=== PATIENT | male | born 1960 | race Caucasian/White ===

== ENCOUNTER 2025-03-03 13:26 | Inpatient (IN) | payer OTHER ==
[~2025-03-03] VITALS: Ht 177.8 cm; Wt 75.0 kg
[2025-03-03 15:03] LABS: BASOPHILS % 0.6 % (0.0-2.0); EOSINOPHILS % 1.8 % (0.0-5.0); HEMATOCRIT. 43.3 % (42.0-52.0); HEMOGLOBIN. 14.8 g/dL (14.0-18.0); LYMPHOCYTES % 11.8 % (20.0-50.0); MEAN PLATELET VOLUME 8.4 fl (7.4-10.4); MONOCYTES % 10.3 % (2.0-8.0); NEUTROPHILS % 75.5 % (40.0-76.0); PLATELET 397 x1000/uL (130-400); RED BLOOD CELL COUNT 4.85 mill/uL (4.7-6.1); RED CELL DISTRIBUTION WIDTH 14.6 % (11.6-14.6)
[2025-03-03 15:17] LABS: INR 1.0
[2025-03-03 15:18] LABS: CREATININE 0.8 mg/dL (0.6-1.3); ETHANOL BLOOD < 10 mg/dL (<10); UREA NITROGEN BLOOD 7 mg/dL (9-23)
[2025-03-03 15:42] LABS: CLARITY URINE CLEAR (CLEAR); COLOR URINE YELLOW (YELLOW); GLUCOSE URINE NEGATIVE (NEGATIVE); KETONES URINE TRACE (NEGATIVE); LEUKOCYTE ESTERASE URINE NEGATIVE (NEGATIVE); NITRITE URINE NEGATIVE (NEGATIVE); OCCULT BLOOD URINE NEGATIVE (NEGATIVE); PH URINE 6.0 (4.5-8.0); PROTEIN URINE NEGATIVE (NEGATIVE); SPECIFIC GRAVITY URINE 1.011 (1.005-1.030); UROBILINOGEN URINE 0.2 E.U./dL (0.2-1.0)
[2025-03-03 15:50] LABS: *AMPHETAMINES SCREEN URINE NEGATIVE (NEGATIVE); *BARBITURATES SCREEN URINE NEGATIVE (NEGATIVE); *BENZODIAZEPINES SCREEN URINE NEGATIVE (NEGATIVE)
[2025-03-03 15:51] LABS: *COCAINE SCREEN URINE NEGATIVE (NEGATIVE); CANNABINOID URINE SCREEN NEGATIVE (NEGATIVE); ECSTASY MDMA SCREEN URINE NEGATIVE (NEGATIVE); METHADONE URINE SCREEN NEGATIVE (NEGATIVE); OPIATES URINE SCREEN NEGATIVE (NEGATIVE); PHENCYCLIDINE URINE SCREEN NEGATIVE (NEGATIVE)
[2025-03-03] MEDS ORDERED: IPRATROPIUM/ALBUTEROL 0.5-3(2.5)MG/3ML NEB HHN PRN (16:00)
[2025-03-03] MEDS ORDERED: ONDANSETRON HCL 4MG/2ML INJ IV PRN (16:00)
[2025-03-03] MEDS ORDERED: DOCUSATE SODIUM 100MG CAPSULE PO PRN (16:00)
[2025-03-03] MEDS ORDERED: CLONIDINE 0.1MG TABLET PO PRN (16:00)
[2025-03-03] MEDS ORDERED: ACETAMINOPHEN 325MG TABLET PO PRN ×2 (16:00)
[2025-03-03] MEDS: LABETALOL 5MG/ML 4ML INJ IV SCH (16:02)
[2025-03-03] MEDS: CLOPIDOGREL 75MG TABLET PO SCH (16:02)
[2025-03-03] MEDS ORDERED: HYDRALAZINE 20MG/ML VIAL IV PRN ×2 (17:15)
[2025-03-03] MEDS: LOSARTAN 25 MG TABLET PO SCH (18:14)
[2025-03-03 18:30] VITALS: BP 197/99; PULSE 74; RESP 19; TEMP 36.7516
[2025-03-03 20:00] VITALS: BP 161/63; PULSE 72; RESP 18; TEMP 36.8; O2SAT 97
[2025-03-03] MEDS ORDERED: CARV3.1242 PO (20:10)
[2025-03-03] MEDS ORDERED: LISI20TA31 PO (20:10)
[2025-03-03] MEDS: LISINOPRIL 20MG TABLET PO SCH (21:06)
[2025-03-03] MEDS: ATORVASTATIN CALCIUM 40MG TABLET PO SCH (21:07)
[2025-03-03] MEDS: AMLODIPINE 10MG TABLET PO SCH (21:07)
[2025-03-03] MEDS: ENOXAPARIN 40MG/0.4ML SYR SUBCUT SCH (21:09)
[2025-03-03 21:38] LABS: TROPONIN I HIGH SENSITIVITY 38 ng/L (3.0-53)
[2025-03-03 21:39] LABS: PHOSPHORUS 2.2 mg/dL (2.5-4.9)
[2025-03-03 22:16] LABS: HEPATITIS C AB NON REACTIVE (Neg) (Negative)
[2025-03-04] VITALS: BP 112/75; PULSE 67; RESP 18; TEMP 37; O2SAT 98
[2025-03-04 04:00] VITALS: BP 120/63; PULSE 70; RESP 19; TEMP 36.8; TEMP 36.9; O2SAT 98
[2025-03-04] MEDS: LORAZEPAM 1MG TABLET PO PRN (04:19)
[2025-03-04 08:00] VITALS: BP 109/72; PULSE 79; RESP 16; TEMP 36.7; O2SAT 97
[2025-03-04] MEDS ORDERED: ASPIRIN 81MG EC TABLET PO SCH (09:00)
[2025-03-04 10:39] LABS: BASOPHILS % 1.2 % (0.0-2.0); EOSINOPHILS % 7.1 % (0.0-5.0); HEMATOCRIT. 42.8 % (42.0-52.0); HEMOGLOBIN. 14.5 g/dL (14.0-18.0); LYMPHOCYTES % 19.2 % (20.0-50.0); MEAN PLATELET VOLUME 8.4 fl (7.4-10.4); MONOCYTES % 11.7 % (2.0-8.0); NEUTROPHILS % 60.8 % (40.0-76.0); PLATELET 363 x1000/uL (130-400); RED BLOOD CELL COUNT 4.71 mill/uL (4.7-6.1); RED CELL DISTRIBUTION WIDTH 14.1 % (11.6-14.6)
[2025-03-04 10:57] LABS: CREATININE 0.8 mg/dL (0.6-1.3); TRIGLYCERIDE 165 mg/dL (0-150); TROPONIN I HIGH SENSITIVITY 37 ng/L (3.0-53); UREA NITROGEN BLOOD 8 mg/dL (9-23)
[2025-03-04 10:58] LABS: LDL CHOLESTEROL 117 mg/dL (5-100)
[2025-03-04 10:59] LABS: PHOSPHORUS 2.9 mg/dL (2.5-4.9)
[2025-03-04 11:01] LABS: T4 FREE 1.12 ng/dL (0.89-1.76)
[2025-03-04] MEDS: PANTOPRAZOLE SODIUM 40 MG/VIAL IV SCH (11:17)
[2025-03-04] MEDS: CLOPIDOGREL 75MG TABLET PO SCH (11:17)
[2025-03-04] MEDS: ASPIRIN 81MG TABLET PO SCH (11:17)
[2025-03-04 12:00] VITALS: BP 129/75; PULSE 86; RESP 15; TEMP 36.8; O2SAT 98
[2025-03-04 16:00] VITALS: BP 123/67; PULSE 98; RESP 14; TEMP 36.9; O2SAT 99
[2025-03-04 20:00] VITALS: BP 131/78; PULSE 69; RESP 21; TEMP 36.5; O2SAT 96
[2025-03-04] MEDS: FAMOTIDINE 20MG TABLET PO SCH (20:52)
[2025-03-04] MEDS: CARVEDILOL 3.125 MG TABLET PO SCH (20:52)
[2025-03-05] VITALS: BP 136/69; PULSE 77; RESP 16; TEMP 36.7; O2SAT 96
[2025-03-05 04:00] VITALS: BP 131/98; PULSE 99; RESP 22; TEMP 36.6; O2SAT 97
[2025-03-05 08:00] VITALS: BP 131/85; PULSE 80; RESP 15; TEMP 36.6; O2SAT 100
[2025-03-05 08:33] LABS: TRIGLYCERIDE 182.0 mg/dL (0-150)
[2025-03-05 08:34] LABS: LDL CHOLESTEROL 118.0 mg/dL (5-100)
[2025-03-05] MEDS: FOLIC ACID 1MG TABLET PO SCH (08:59)
[2025-03-05] MEDS: THIAMINE HCL 100MG TABLET PO SCH (08:59)
[2025-03-05] MEDS ORDERED: LISI20TA31 PO (11:42)
[2025-03-05] MEDS ORDERED: CARV3.1242 PO (11:42)
[2025-03-05] MEDS ORDERED: CLOP-31 PO (11:42)
[2025-03-05 12:00] VITALS: BP 117/74; PULSE 70; RESP 22; TEMP 36.7; O2SAT 93
[2025-03-05 12:34] VITALS: BP 117/74; PULSE 70; TEMP 98.1; O2SAT 95
[2025-03-05] MEDS ORDERED: ASPI-1406 PO (12:56)
[2025-03-05] MEDS ORDERED: ATOR40TA70 PO (12:56)
[2025-03-05] MEDS ORDERED: FAMOTIDINE 20MG TABLET PO SCH (21:00)
== END 2025-03-05 15:54 | disposition home or self-care (01) | DRG 65 ==
LOC: ER 14:03 → 3WST 15:48 → EDBEDREQTM 16:15 → EDBEDREQ 16:15 → ENRESERV 16:26
PROVIDERS: ADMIT Hospitalist; ATTEND Hospitalist
DX: I63.81 Other cerebral infarction due to occlusion or stenosis of small artery (principal); I16.1 Hypertensive emergency; R73.9 Hyperglycemia, unspecified; F10.10 Alcohol abuse, uncomplicated; E78.00 Pure hypercholesterolemia, unspecified; E83.39 Other disorders of phosphorus metabolism; G62.9 Polyneuropathy, unspecified; R26.9 Unspecified abnormalities of gait and mobility; I11.9 Hypertensive heart disease without heart failure; Z79.02 Long term (current) use of antithrombotics/antiplatelets; Y90.0 Blood alcohol level of less than 20 mg/100 ml; Z79.82 Long term (current) use of aspirin; Z79.899 Other long term (current) drug therapy; Z82.3 Family history of stroke; Z85.820 Personal history of malignant melanoma of skin; Z86.73 Personal history of transient ischemic attack (TIA), and cerebral infarction without residual deficits; Z91.148 Patient's other noncompliance with medication regimen for other reason; Z95.1 Presence of aortocoronary bypass graft; Z98.84 Bariatric surgery status
CPT/HCPCS: 36415; 70496; 70498; 70551; 71045; 80048; 80061; 80305; 80320; 81003; 83036; 83735; 84100; 84439; 84443; 84481; 84484; 85025; 86705; 87340; 93005; 93306; 97116; 97162; 97165; 99291; J1650; J2470; J3490; G0480